=== PATIENT | female | born 1940 | race Caucasian/White ===

== ENCOUNTER 2018-08-22 10:25 | Emergency (ER) | payer BC ==
[~2018-08-22] VITALS: Ht 157.5 cm; Wt 69.2 kg
[2018-08-22 10:28] VITALS: Ht 157.5 cm; Wt 69.2 kg
[2018-08-22] MEDS ORDERED: NICARDipine HCL 30 MG CAPSULE PO ONE (11:00)
[2018-08-22 11:41] VITALS: BP 117/52; PULSE 62; RESP 16
--- NOTE | 2018-08-22 12:11 | ERD ---
ER Documentation Chief Complaint Chief Complaint HIGH BP @ HOME 180/80 , DENIES ANY DIZZINESS , NO CP HPI Patient is a 78-year-old female with a history of hypertension who presents with high blood pressure. The patient checked her blood pressure at a kiosk and was found to have high blood pressure. She takes losartan. She went home and called 911 and the paramedics took her blood pressure. She decided to drive herself to the emergency department. She has no other complaints. Upon review of old medical records this is the patient's first visit to the emergency department. She says her primary doctor is Dr. 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 She stopped a blood pressure medication 4 months ago on her own because she did not want to be taking lots of medications. ROS All systems reviewed and are negative except as per history of present illness. PMhx/Soc History of Surgery: No Anesthesia Reaction: No Hx Neurological Disorder: No Hx Respiratory Disorders: No Hx Cardiac Disorders: Yes (HTN) Hx Psychiatric Problems: No Hx Miscellaneous Medical Probl: No Hx Alcohol Use: No Hx Substance Use: No Hx Tobacco Use: No Smoking Status: Never smoker FmHx Family History: diabetes Physical Exam Vitals Vital Signs Date Temp Pulse Resp B/P (MAP) Pulse Ox O2 O2 Flow FiO2 Time Delivery Rate 08/22/18 98.0 62 16 117/52 98 Room Air 11:41 (73) 08/22/18 98.6 90 18 184/90 98 10:28 (121) Physical Exam Const: No acute distress Head: Atraumatic Eyes: Normal Conjunctiva ENT: Normal External Ears, Nose and Mouth. Neck: Full range of motion. No meningismus. Resp: Clear to auscultation bilaterally Cardio: Regular rate and rhythm, no murmurs Abd: Soft, non tender, non distended. Normal bowel sounds Skin: No petechiae or rashes Back: No midline or flank tenderness Ext: No cyanosis, or edema Neur: Awake and alert Psych: Normal Mood and Affect Results 24 hrs Current Medications Medications Dose Sig/Kandi Start Time Status Last (Trade) Ordered Route PRN Stop Time Admin Dose Reason Admin Nicardipine 30 mg ONCE ONCE 08/22/18 DC 08/22/18 HCl PO 11:00 08/22/18 11:05 (Cardene) 11:01 Procedures/MDM Patient is a 78-year-old female presents with acute on chronic hypertension. She was given Cardene in the emergency department. I doubt acute coronary syndrome or stroke. I doubt hypertensive emergency. I believe outpatient management is appropriate but the patient will need to follow-up with Dr. Yuan to discuss further blood pressure management. Departure Diagnosis: Primary Impression: Hypertension Hypertension type: essential hypertension Qualified Codes: I10 - Essential (primary) hypertension Condition: Fair Patient Instructions: High Blood Pressure (Hypertension) Referrals: SHAMIKA YUAN MD Additional Instructions: SPECIALIST: YOU HAVE A MEDICAL CONDITION WHICH REQUIRES YOU TO SEE A SPECIALIST WITHIN THE NEXT 1-2 DAYS. PLEASE FOLLOW UP WITH YOUR PRIMARY PHYSICIAN FOR REFFERAL.IF YOU DO NOT HAVE A PRIMARY CARE PHYSICIAN AND/OR YOU CAN NOT AFFORD TO SEE A PHYSICIAN THE FOLLOWING RESOURCES HAVE BEEN SUPPLIED TO YOU. IT IS YOUR RESPONSIBILITY TO BE SEEN BY THE SPECIALIST SENDY MARADIAGA MD Aug 22, 2018 12:11
== END 2018-08-22 12:15 | disposition home or self-care (01) ==
LOC: E/R 10:25
DX: I10 Essential (primary) hypertension (principal)
CPT/HCPCS: 99283